=== PATIENT | male | born 1950 | race Caucasian/White ===

== ENCOUNTER 2017-10-19 08:11 | Day surgery (SDC) | payer BC ==
[2017-10-19] MEDS ORDERED: LIDOCAINE 2% MDV (20MG/ML) 20ML VIAL IV ONE (08:12)
[2017-10-19] MEDS ORDERED: PROPOFOL 10 MG/ML VIAL IV ONE (08:12)
[2017-10-19] MEDS ORDERED: MIDAZOLAM HCL 2MG/2ML VIAL IV ONE (08:12)
--- NOTE | 2017-10-20 10:20 | Operative Note ---
51DATE OF SURGERY: 10/19/2017 OPERATION: ESOPHAGOGASTRODUODENOSCOPY with biopsy. INDICATION: Previous diagnosis of short-segment Jansen's esophagus at the [facility]. The patient returns at this time for surveillance. He also had a Hemoccult-positive stool. ANESTHESIA: Intravenous sedation was administered by the department of anesthesiology and included Diprivan titrated to effect. PROCEDURE: Following informed consent from this alert individual, including a discussion of the risks and benefits of the procedure and an opportunity for the patient to ask questions, the patient was in the left lateral decubitus position. The Olympus [id number] video endoscope was inserted into the esophagus without resistance. The proximal esophagus had a normal appearance with normal folds and distensibility. The mid esophagus likewise was free from abnormalities. The distal esophageal segment demonstrated some irregularity at the squamocolumnar junction, and multiple biopsies from this site were taken. The stomach was then entered. The gastric fundus and pars media had a diffuse erythema noted without ulcerations or erosions. The antrum evaluated circumferentially demonstrated scarring particularly in the prepyloric antrum. The pylorus itself was patent. The duodenal bulb, sweep, and descending duodenum were then examined. There were erosive changes noted in the duodenal bulb and some scarring noted in the sweep. The descending portion appeared to be normal. Biopsies were taken from the duodenum and upon the stomach upon withdrawal. Retroflexion in the stomach failed to demonstrate any additional changes. The endoscope was then straightened and withdrawn back to the distal esophagus where biopsies were taken from the squamocolumnar junction to again assess for short-segment Jansen's esophagus. The endoscope was then withdrawn further. The patient tolerated the procedure well and was returned to the recovery area in stable condition. IMPRESSION: 1. Short-segment Jansen's esophagus. Biopsies taken. 2. Diffuse gastritis with scarring. Biopsies taken. 3. Erosive duodenitis. Biopsies taken. RECOMMENDATION: At this point, I did recommend that he increase his Protonix to 40 mg twice daily for at least the next 6 weeks to hopefully heal the inflammatory changes noted above. Further recommendations will be forthcoming pending results of biopsies. Followup will be with primary care physicians also. As always, thank you for allowing me to participate in the care of your patient. CC: Dr. Walter AARON
--- NOTE | 2017-10-20 10:30 | Operative Note ---
DATE OF SURGERY: 10/19/2017 OPERATION: COLONOSCOPY to the cecum. INDICATION: Hemoccult-positive stool. Prior history of adenomatous polyp. The patient returned at this time for surveillance. His last examination was in 2014 at the [facility]. ANESTHESIA: Intravenous sedation was administered by the department of anesthesiology and included Diprivan titrated to effect. PROCEDURE: Following informed consent from this alert individual including a discussion of the risks and benefits of the procedure and an opportunity for the patient to ask questions, the patient was in the left lateral decubitus position. A digital rectal examination was performed. No abnormalities were noted. Following this, the Olympus [id number] video colonoscope was inserted into the rectum without resistance. The rectal mucosa had a normal appearance with normal folds and distensibility. The colonoscope was advanced up through the bowel to the level of the cecum with some slight difficulty. Abdominal pressure support was supplied, and ultimately the patient was in the supine position. This facilitated reaching the cecal base. The colon preparation was fair. There was some retained bilious and semi-formed and predominantly liquid stool. Washing and suctioning was employed vigorously. From the base of the cecum, the colonoscope was then withdrawn. Again no abnormalities were noted throughout. Retroflexion in the rectum was endoscopically unremarkable. IMPRESSION: Fairly unremarkable colonoscopy to the cecum; however, the preparation was fair as described above with predominantly retained liquid and some bilious-appearing secretions throughout. RECOMMENDATIONS: At this point, I would recommend recheck colonoscopy in 3 years' time for surveillance. He had a remote history of adenomatous polyps. Followup will also be with Dr. Watson and Dr. Ayleen Velasquez. As always, thank you for allowing me to participate in the care of your patient. CC: Dr. Walter AARON
== END 2017-10-19 10:06 | disposition home or self-care (01) ==
LOC: HOP 08:11
PROVIDERS: ATTEND Internal Medicine Gastroenterology
DX: R19.5 Other fecal abnormalities (principal); Z86.010 Personal history of colon polyps; K22.70 Barrett's esophagus without dysplasia; D12.2 Benign neoplasm of ascending colon; D12.3 Benign neoplasm of transverse colon; K62.1 Rectal polyp; I10 Essential (primary) hypertension; E03.9 Hypothyroidism, unspecified; K29.70 Gastritis, unspecified, without bleeding; K29.80 Duodenitis without bleeding